=== PATIENT | male | born 1975 | race Asian ===

== ENCOUNTER 2017-08-31 17:25 | Emergency (ER) | payer OTHER ==
[~2017-08-31] VITALS: Ht 188 cm; Wt 106.6 kg
[~2017-08-31 17:25] MED LIST: CYCL10TA35 PO; DIVA500T2 OR
== END 2017-08-31 18:39 | disposition home or self-care (01) ==
LOC: ED 17:25
DX: S33.5XXA Sprain of ligaments of lumbar spine, initial encounter (principal); S00.93XA Contusion of unspecified part of head, initial encounter; S39.012A Strain of muscle, fascia and tendon of lower back, initial encounter; V49.40XA Driver injured in collision with unspecified motor vehicles in traffic accident, initial encounter
CPT/HCPCS: 82150; 96372; 99283; J1885